=== PATIENT | male | born 1965 | race Hispanic/Latino ===

== ENCOUNTER 2017-12-17 08:08 | Emergency (ER) | payer SELFPAY ==
--- NOTE | 2017-12-17 08:33 | EDPHYS ---
Physician Documentation [facility] Name: Karson Milligan Age: 52 yrs Sex: Male : 1965 Arrival Date: 12/17/2017 Time: 08:12 Bed 19 Private MD: ED Physician Oleg Walker HPI: 12/17 08:36 This 52 yrs old Male presents to ER via Ambulatory with complaints of Insect kb Bite, Arm Pain. 08:36 The patient was bitten on the left scapular area, by insect, at home. Onset: The kb symptoms/episode began/occurred 4 day(s) ago. Animal information: Patient/Caregiver unable to provide information related to the animal. Secondary to the bite the patient reports erythema, pain, warmth. Associated signs and symptoms: Pertinent positives: erythema at site, pain at site, Pertinent negatives: bony tenderness, fever, fluctuance, loss of consciousness, motor deficit, numbness distal to wound, suspected foreign body, swelling at site, tenderness. Severity of symptoms: At their worst the symptoms were mild, moderate, in the emergency department the symptoms are unchanged. The patient has not experienced similar symptoms in the past. The patient has not recently seen a physician. Pt reports he was bitten by insects 4 days ago. Area has gotten more red and painful. Historical: - Allergies: 08:21 No Known Allergies; em - PMHx: 08:21 Hypertension; em - PSHx: 08:21 None; em - Immunization history:: Adult Immunizations up to date. - Social history:: Smoking status: Patient/guardian denies using tobacco. - Ebola Screening: : Patient negative for fever greater than or equal to 101.5 degrees Fahrenheit, and additional compatible Ebola Virus Disease symptoms Patient denies exposure to infectious person Patient denies travel to an Ebola-affected area in the 21 days before illness onset No symptoms or risks identified at this time. ROS: 08:35 Constitutional: Negative for fever, chills, and weight loss, Cardiovascular: Negative kb for chest pain, palpitations, and edema, Respiratory: Negative for shortness of breath, cough, wheezing, and pleuritic chest pain, Abdomen/GI: Negative for abdominal pain, nausea, vomiting, diarrhea, and constipation, Back: Negative for injury and pain, : Negative for injury, bleeding, discharge, and swelling, MS/Extremity: Negative for injury and deformity, Neuro: Negative for headache, weakness, numbness, tingling, and seizure. 08:35 Skin: Positive for erythema, of the left scapular area. Exam: 08:35 Constitutional: This is a well developed, well nourished patient who is awake, alert, kb and in no acute distress. Head/Face: Normocephalic, atraumatic. Chest/axilla: Normal chest wall appearance and motion. Nontender with no deformity. No lesions are appreciated. Cardiovascular: Regular rate and rhythm with a normal S1 and S2. No gallops, murmurs, or rubs. Normal PMI, no JVD. No pulse deficits. Respiratory: Lungs have equal breath sounds bilaterally, clear to auscultation and percussion. No rales, rhonchi or wheezes noted. No increased work of breathing, no retractions or nasal flaring. Abdomen/GI: Soft, non-tender, with normal bowel sounds. No distension or tympany. No guarding or rebound. No evidence of tenderness throughout. MS/ Extremity: Pulses equal, no cyanosis. Neurovascular intact. Full, normal range of motion. Neuro: Awake and alert, GCS 15, oriented to person, place, time, and situation. Cranial nerves II-XII grossly intact. Motor strength 5/5 in all extremities. Sensory grossly intact. Cerebellar exam normal. Normal gait. 08:35 Skin: Appearance: Color: erythematous, Temperature: hot, insect bites. Vital Signs: 08:22 BP 183 / 92; Pulse 83; Resp 18; Temp 98.8(O); Pulse Ox 99% on R/A; Weight 95.25 kg; em Height 5 ft. 8 in. (172.72 cm); Pain 5/10; 08:22 Body Mass Index 31.93 (95.25 kg, 172.72 cm) em MDM: 08:16 Patient medically screened. kb 08:34 Data reviewed: vital signs, nurses notes. Data interpreted: Pulse oximetry: on room air kb is 99 %. Interpretation: normal. Counseling: I had a detailed discussion with the patient and/or guardian regarding: the historical points, exam findings, and any diagnostic results supporting the discharge/admit diagnosis, the need for outpatient follow up, a family practitioner, to return to the emergency department if symptoms worsen or persist or if there are any questions or concerns that arise at home. Administered Medications: 08:38 Drug: Bactrim (160 mg-800 mg (DS) 1 tablet Route: PO; em 08:39 Follow up: Response: Medication administered at discharge. em Disposition: 10:04 Co-signature as Attending Physician, Oleg Walker MD. rn Disposition: 12/17/17 08:32 Discharged to Home. Impression: Local infection of the skin and subcutaneous tissue, unspecified, Bitten or stung by nonvenomous insect and other nonvenomous arthropods. - Condition is Stable. - Discharge Instructions: Insect Bite, [id number], Cellulitis, Adult, [id number]. - Prescriptions for Bactrim DS 800- 160 mg Oral Tablet - take 1 tablet by ORAL route every 12 hours for 7 days; 14 tablet. - Medication Reconciliation Form, Thank You Letter, Antibiotic Education, Prescription Opioid Use form. - Follow up: Emergency Department; When: As needed; Reason: Worsening of condition. Follow up: Private Physician; When: 2 - 3 days; Reason: Recheck today's complaints, Continuance of care, Re-evaluation by your physician. Signatures: Evelyn Garcia, NON MORSE INTERCEPT TECHNICIAN-C NON MORSE INTERCEPT TECHNICIAN-Ckb Javier Rankin, SLATE CUTTER OPERATOR SLATE CUTTER OPERATOR em Oleg Walker MD MD pattern drafter: (The following items were deleted from the chart) 08:41 08:32 12/17/2017 08:32 Discharged to Home. Impression: Local infection of the skin and em subcutaneous tissue, unspecified; Bitten or stung by nonvenomous insect and other nonvenomous arthropods. Condition is Stable. Forms are Medication Reconciliation Form, Thank You Letter, Antibiotic Education, Prescription Opioid Use. Follow up: Emergency Department; When: As needed; Reason: Worsening of condition. Follow up: Private Physician; When: 2 - 3 days; Reason: Recheck today's complaints, Continuance of care, Re-evaluation by your physician. kb
--- NOTE | 2017-12-17 08:33 | ER ---
Nurse's Notes [facility] Name: Karson Milligan Age: 52 yrs Sex: Male : 1965 Arrival Date: 12/17/2017 Time: 08:12 Bed 19 Private MD: Diagnosis: Local infection of the skin and subcutaneous tissue, unspecified;Bitten or stung by nonvenomous insect and other nonvenomous arthropods Presentation: 12/17 08:18 Presenting complaint: Patient states: woke up 4 days ago with pain to the left em shoulder, c/o possible bug bite, denies fever, rates pain 5/10. Transition of care: patient was not received from another setting of care. Onset of symptoms was December 13, 2017. Risk Assessment: Do you want to hurt yourself or someone else? Patient reports no desire to harm self or others. Initial Sepsis Screen: Does the patient meet any 2 criteria? No. Patient's initial sepsis screen is negative. Does the patient have a suspected source of infection? Yes: Skin breakdown/wound. Care prior to arrival: None. 08:18 Method Of Arrival: Ambulatory em 08:18 Acuity: KHAI 5 ss Triage Assessment: 08:21 General: Appears in no apparent distress. comfortable, Behavior is calm, cooperative. em Pain: Complains of pain in right posterior upper chest wall Pain currently is 5 out of 10 on a pain scale. 08:25 Bite description: bite sustained to right posterior upper chest wall by an unknown em animal, animal information: vaccination(s) is current. Historical: - Allergies: 08:21 No Known Allergies; em - PMHx: 08:21 Hypertension; em - PSHx: 08:21 None; em - Immunization history:: Adult Immunizations up to date. - Social history:: Smoking status: Patient/guardian denies using tobacco. - Ebola Screening: : Patient negative for fever greater than or equal to 101.5 degrees Fahrenheit, and additional compatible Ebola Virus Disease symptoms Patient denies exposure to infectious person Patient denies travel to an Ebola-affected area in the 21 days before illness onset No symptoms or risks identified at this time. Screenin:23 Abuse screen: Denies threats or abuse. Nutritional screening: No deficits noted. em Tuberculosis screening: No symptoms or risk factors identified. Fall Risk None identified. Assessment: 08:25 General: Appears in no apparent distress. comfortable, Behavior is calm, cooperative. em Pain: Complains of pain in right posterior upper chest wall Pain currently is 5 out of 10 on a pain scale. Neuro: Level of Consciousness is awake, alert, obeys commands, Oriented to person, place, time, situation. Cardiovascular: Capillary refill < 3 seconds Patient's skin is warm and dry. Respiratory: Airway is patent Respiratory effort is even, unlabored, Respiratory pattern is regular, symmetrical. GI: Abdomen is flat, Patient currently denies nausea, vomiting. : No signs and/or symptoms were reported regarding the genitourinary system. EENT: No signs and/or symptoms were reported regarding the EENT system. Derm: Skin is intact, Skin is pink, warm \T\ dry. Rash noted that is itchy, red, raised, on right posterior upper chest wall. Musculoskeletal: Range of motion: intact in all extremities. 08:30 General: The previous assessment is accurate, call light remains within reach. . ss Vital Signs: 08:22 BP 183 / 92; Pulse 83; Resp 18; Temp 98.8(O); Pulse Ox 99% on R/A; Weight 95.25 kg; em Height 5 ft. 8 in. (172.72 cm); Pain 5/10; 08:22 Body Mass Index 31.93 (95.25 kg, 172.72 cm) em ED Course: 08:12 Patient arrived in ED. as 08:14 Evelyn Garcia FNP-C is [facility]. kb 08:14 Oleg Walker MD is Attending Physician. kb 08:17 Javier Rankin LVN is Primary Nurse. em 08:22 Arm band placed on. em 08:23 Patient has correct armband on for positive identification. Placed in gown. Bed in low em position. Call light in reach. 08:29 Triage completed. ss 08:30 No provider procedures requiring assistance completed. Patient did not have IV access em during this emergency room visit. Administered Medications: 08:38 Drug: Bactrim (160 mg-800 mg (DS) 1 tablet Route: PO; em 08:39 Follow up: Response: Medication administered at discharge. em Outcome: 08:32 Discharge ordered by . kb 08:40 Discharged to home ambulatory. em 08:40 Condition: good 08:40 Discharge instructions given to patient, Instructed on discharge instructions, follow up and referral plans. medication usage, Demonstrated understanding of instructions, follow-up care, medications, Prescriptions given X 1. 08:41 Patient left the ED. em Signatures: Evelyn Garcia, KEENAN-C CLAM DREDGE BOAT CAPTAIN-Javier Sanchez, PRECAST MOLDER PRECAST MOLDER em Maggie Pastrana Shelby, RN RN ss
[2017-12-17] MEDS ORDERED: SMZ./TMP. 800/160 MG TABLET ONE (08:38)
== END 2017-12-17 08:41 | disposition home or self-care (01) ==
LOC: ER 08:08
DX: S40.262A Insect bite (nonvenomous) of left shoulder, initial encounter (principal); I10 Essential (primary) hypertension
CPT/HCPCS: 99283